=== PATIENT | male | born 1990 | race African-American/Black ===

== ENCOUNTER 2016-06-02 22:46 | Emergency (ER) | payer MEDICAID, OTHER ==
[~2016-06-02] VITALS: Ht 172.7 cm; Wt 59.0 kg
[2016-06-03 00:04] LABS: Basophils # (auto) 0.1 uL; Basophils % (auto) 1.3 % (0.0-2.0); Eosinophils # (auto) 0 uL; Eosinophils % (auto) 0.2 % (0.0-7.0); Hematocrit 47.8 % (41.0-53.0); Hemoglobin 15.3 g/dL (13.5-17.5); Lymphocytes # (auto) 1.9 uL; Lymphocytes % (auto) 22.7 % (10.0-50.0); Mean Corpuscular Hemoglobin 28.2 pg (28.0-32.0); Mean Corpuscular Hgb Conc. 31.9 g/dL (32.0-36.0); Mean Corpuscular Volume 88.3 fL (80.0-100.0); Mean Platelet Volume 9.5 fL (7.4-10.4); Monocytes # (auto) 0.6 uL; Monocytes % (auto) 6.9 % (0.0-12.0); Neutrophils # (auto) 5.8 uL; Neutrophils % (auto) 68.9 % (37.0-80.0); Platelet Count (auto) 255 10^3/uL (140-450); Red Cell Distribution Width 14.7 % (11.6-16.0); White Blood Cell 8.4 10^3/uL (4.4-10.8)
[2016-06-03 00:21] LABS: Albumin 4.1 g/dL (3.4-5.0); Calcium 9.4 mg/dL (8.5-10.1); Potassium 3.1 mmol/L (3.5-5.1)
[2016-06-03 00:34] LABS: Bilirubin, Total 0.3 mg/dL (0.2-1.0); Total Protein 9.2 g/dL (6.4-8.2)
[2016-06-03 02:31] VITALS: BP 119/56
[2016-06-03] MEDS ORDERED: POTASSIUM CHL 20 Meq TABLET PO ONE (03:30)
== END 2016-06-03 03:35 ==
LOC: ER 22:57
DX: R06.02 Shortness of breath (principal); F12.10 Cannabis abuse, uncomplicated
CPT/HCPCS: 36415; 71020; 80053; 85025; 85049

== ENCOUNTER 2024-05-30 12:02 | Inpatient (IN) | payer MEDICARE, MEDICAID ==
[~2024-05-30] VITALS: Ht 170.2 cm; Wt 59.1 kg
--- NOTE | 2024-05-30 13:41 | ED.PDOC ---
History of Present Illness HPI Comments 33 year old male with a Hx of dialysis x 1 year and HIV presents for fevers, body aches Symptoms started 1 day ago at work Had dialysis Thursday but did not get full treatment Denies sick contacts Denies persistent chest pain, shortness of breath, leg swelling Denies history of asthma nor any breathing conditions Denies history of pneumonia Denies recent international travel Chief Complaint: Fever Time Seen by MD: 12:26 Reviewed Notes: Nurses Notes, Medications, Allergies Information Source: Patient Past Medical History PAST MEDICAL HISTORY: HIV Social History Smoker: Non-Smoker Alcohol: Denies ETOH Use Drugs: Marijuana All Other Systems: Reviewed and Negative (Per HPI) Physical Exam General Appearance: No Apparent Distress, Normal HEENT: Normal ENT Inspection, Pharynx Normal, TMs Normal Neck: Full Range of Motion, Non-Tender, Normal, Normal Inspection Respiratory: Chest Non-Tender, Lungs Clear, No Accessory Muscle Use, No Respiratory Distress, Normal Breath Sounds Cardiovascular: No Murmur, No Gallop, Regular Rate/Rhythm, Other (Dialysis port to right chest.) Breast Exam: Deferred Gastrointestinal: No Organomegaly, Non Tender, No Pulsatile Mass, Normal Bowel Sounds, Soft Genitalia: Deferred Pelvic: Deferred Rectal: Deferred Extremities: No calf tenderness, Normal capillary refill, Normal inspection, Normal range of motion, Non-tender, No pedal edema Musculoskeletal : Apperance: Normal Neurologic: Alert, No Motor Deficits, Normal Affect, Normal Mood, No Sensory Deficits Cerebellar Function: Normal Reflexes: Normal Skin: Dry, Normal Color, Warm Lymphatic: No Adenopathy Was a procedure done? Was a procedure done?: No Fever Differential Dx Differential Diagnosis: Influenza, Pneumonia, UTI, Viral Syndrome, Pharyngitis X-Ray, Labs, Meds, VS Vital Signs Date Time Temp Pulse Resp B/P (MAP) Pulse Ox O2 Delivery O2 Flow Rate FiO2 05/30/24 13:57 100.6 05/30/24 13:36 100.6 115 16 133/84 (100) 100 100.6 05/30/24 13:36 115 16 100 Room Air 05/30/24 12:15 100.6 115 16 133/84 (100) 100 Lab Test 05/30/24 17:36 05/30/24 15:50 05/30/24 14:01 Range/Units Lactic Acid Level 1.4 0.4-2.0 mmol/L Influenza Type A Antigen Negative Negative Influenza Type B Antigen Negative Negative SARS-CoV-2 Antigen (Rapid) Negative NEGATIVE White Blood Count 21.1 H 4.4-10.8 10^3/uL Red Blood Count 3.58 L 4.5-5.90 10^6/uL Hemoglobin 11.5 L 13.5-17.5 g/dL Hematocrit 35.4 L 41.0-53.0 % Mean Corpuscular Volume 98.9 80.0-100.0 fL Mean Corpuscular Hemoglobin 32.0 28.0-32.0 pg Mean Corpuscular Hemoglobin Concent 32.4 32.0-36.0 g/dL Red Cell Distribution Width 15.5 H 11.8-14.3 % Platelet Count 142 140-450 10^3/uL Mean Platelet Volume 9.8 6.9-10.8 fL Neutrophils (%) (Auto) 89.1 H 37.0-80.0 % Lymphocytes (%) (Auto) 3.5 L 10.0-50.0 % Monocytes (%) (Auto) 7.1 0.0-12.0 % Eosinophils (%) (Auto) 0.0 0.0-7.0 % Basophils (%) (Auto) 0.3 0.0-2.0 % Neutrophils # (Auto) 18.8 H 1.6-8.6 10 ^3/uL Lymphocytes # (Auto) 0.7 0.4-5.4 10 ^3/uL Monocytes # (Auto) 1.5 H 0-1.3 10 ^3/uL Eosinophils # (Auto) 0 0-0.8 10 ^3/uL Basophils # (Auto) 0.1 0-0.2 10 ^3/uL Nucleated Red Blood Cells 0.0 % Sodium Level 141 136-145 mmol/L Potassium Level 5.4 H 3.5-5.1 mmol/L Chloride Level 101 98-107 mmol/L Carbon Dioxide Level 25 20-31 mmol/L Anion Gap 15 5-15 Blood Urea Nitrogen 67 H 9-23 mg/dL Creatinine 15.56 *H 0.700-1.30 mg/dL Glomerular Filtration Rate Calc 4 >90 mL/min BUN/Creatinine Ratio 4.3 L 10.0-20.0 Serum Glucose 86 74-106 mg/dL Calcium Level 10.0 8.7-10.4 mg/dL Total Bilirubin 0.4 0.2-1.0 mg/dL Aspartate Amino Transferase (AST) 37 13-40 U/L Alanine Aminotransferase (ALT) 34 7-40 U/L Alkaline Phosphatase 121 H 46-116 U/L Total Protein 7.6 5.7-8.2 g/dL Albumin 4.7 3.2-4.8 g/dL Microbiology Date/Time Source Procedure Growth Status 05/30/24 17:36 Blood Blood Culture - Preliminary NO GROWTH AFTER 24 HOURS OF INCUBATION. Resulted 05/30/24 17:36 Blood Blood Culture - Preliminary NO GROWTH AFTER 24 HOURS OF INCUBATION. Resulted X-Ray, Labs, Meds, VS Comment 33 year old male with a Hx of dialysis x 1 year and HIV presents for fevers, body aches On presentation, the patient is febrile and has stable vital signs. The patient is overall well appearing, non-toxic on exam. Low suspicion for Acute Asthma or COPD Exacerbation, CHF exacerbation, PE, PTX, atypical ACS, Pneumonia Viral Testing done and results show neg findings Labs show: WBC: 21.1, Neutrophils: 18.8, K+: 5.4, Creatinine: 15.56 and eGRF: 4. Pending lactic and blood cultures CXR shows No acute intrathoracic process. Low suspicion for strep pharyngitis given physical exam findings and patient's presenting symptoms, therefore, rapid step was deferred No signs of meningism on exam. Upon arrival patient febrile. Given Tylenol and on re-evaluation temperature is 99.7 Respiratory exam, respirations even and unlabored, clear to auscultation bilaterally No supraclavicular contractions or use of accessory muscles Oxygen saturation on room air 99%, no respiratory distress noted Patient's afebrile, well-appearing, behavior normal for age, good eye contact, mucous membranes pink and moist The patient presents with s/s consistent with fevers of unknown origin. He is immunocompromised and based on patients medical hx, workup reveals that the patient needs further evaluation and/or treatment for the above medical conditions. Patient verbalized understanding of the above and is awaiting further evaluation by the admitting service. Time of 1ST Reevaluation: 16:38 Reevaluation 1ST: Improved Patient Education/Counseling: Diagnosis, Treatment Family Education/Counseling: Diagnosis, Treatment Departure 1 Departure Time of Disposition: 16:57 Impression: Primary Impression: ESRD (end stage renal disease) on dialysis Additional Impressions: Fever of unknown origin History of HIV infection Leukocytosis Qualified Codes: D72.829 - Elevated white blood cell count, unspecified Hyperkalemia Disposition: ADMITTED INPATIENT Condition: Fair Critical Care Note Critical Care Time?: No Stability Stability form required: No Heart Score Heart Score: Heart Score Response (Comments) Value History N/A 0 EKG N/A 0 Age N/A 0 Risk Factors N/A 0 Troponin N/A 0 Total 0 ELLY DELUNA NP May 30, 2024 13:41
[2024-05-30] MEDS: ACETAMINOPHEN 325 MG TAB PO ONE (13:57)
--- NOTE | 2024-05-30 14:07 | DVH ---
CHEST RADIOGRAPH Indication: cough Technique: Frontal and lateral views of the chest were obtained Comparison: CXR dated 02/17/24 was not made available on the PAC system for viewing. FINDINGS: Lines and Tubes: Right chest tunneled dialysis catheter. Lungs: Clear Pleura: No effusion or pneumothorax. Cardiomediastinal contours: Unremarkable Bones: Unremarkable IMPRESSION: No acute intrathoracic process.
[2024-05-30 14:32] LABS: Basophils # (auto) 0.1 10 ^3/uL (0-0.2); Basophils % (auto) 0.3 % (0.0-2.0); Eosinophils # (auto) 0 10 ^3/uL (0-0.8); Hematocrit 35.4 % (41.0-53.0); Hemoglobin 11.5 g/dL (13.5-17.5); Lymphocytes # (auto) 0.7 10 ^3/uL (0.4-5.4); Lymphocytes % (auto) 3.5 % (10.0-50.0); Mean Corpuscular Hgb Conc. 32.4 g/dL (32.0-36.0); Mean Corpuscular Volume 98.9 fL (80.0-100.0); Monocytes # (auto) 1.5 10 ^3/uL (0-1.3); Monocytes % (auto) 7.1 % (0.0-12.0); Neutrophils # (auto) 18.8 10 ^3/uL (1.6-8.6); Neutrophils % (auto) 89.1 % (37.0-80.0); Platelet Count (auto) 142 10^3/uL (140-450); Red Blood Cells 3.58 10^6/uL (4.5-5.90); Red Cell Distribution Width 15.5 % (11.8-14.3); White Blood Cell 21.1 10^3/uL (4.4-10.8)
[2024-05-30 14:42] LABS: Alanine Aminotransferase 34 U/L (7-40); Albumin 4.7 g/dL (3.2-4.8); Anion Gap 15 (5-15); Aspartate Aminotransferase 37 U/L (13-40); BUN/Creatinine Ratio 4.3 (10.0-20.0); Bilirubin, Total 0.4 mg/dL (0.2-1.0); Carbon Dioxide 25 mmol/L (20-31); Chloride 101 mmol/L (98-107); Glucose 86 mg/dL (74-106); Sodium 141 mmol/L (136-145); Total Protein 7.6 g/dL (5.7-8.2)
[2024-05-30 14:54] LABS: Alkaline Phosphatase 121 U/L (46-116); Blood Urea Nitrogen 67 mg/dL (9-23); Potassium 5.4 mmol/L (3.5-5.1)
[2024-05-30] MEDS: cefTRIAXone 1GM/50ML D5W 50 ML IV ONE (15:03)
[2024-05-30 16:27] LABS: Rapid Influenza A Negative (Negative); Rapid Influenza B Negative (Negative)
[2024-05-30 16:28] LABS: COVID19 ANTIGEN SOFIA FIA NEGATIVE (NEGATIVE)
[2024-05-30] MEDS ORDERED: ONDANSETRON HCL 4 MG/2 ML VIAL IV PRN (19:30)
[2024-05-30] MEDS ORDERED: TEMAZEPAM 15 MG CAP PO PRN (19:30)
[2024-05-30] MEDS ORDERED: ALBUTEROL SULF 2.5 MG/0.5ML(0.5%) NEB SOLN NEB PRN (19:30)
[2024-05-30 20:52] VITALS: BP 133/84; PULSE 115; RESP 16; TEMP 100.6; O2SAT 100
[2024-05-30] MEDS: AMIODARONE HCL 200 MG TAB PO SCH (22:00)
[2024-05-30 23:56] VITALS: BP 118/7; PULSE 82; RESP 18; TEMP 98.9; O2SAT 98
[2024-05-31] VITALS (7 sets, daily range): BP systolic 113–125; BP diastolic 69–77; PULSE 73–85; RESP 16–18; TEMP 98.2–98.6; O2SAT 94–100
--- NOTE | 2024-05-31 00:39 | DVHHP2 ---
History of Present Illness Reason for Visit: Generalized weakness History of Present Illness 33-year-old male presents for evaluation of generalized weakness he reports a two day history of generalized weakness with associated fever and body aches. Denies cough, chest pain or shortness for breath. Denies any other acute compl aints at the moment. Past Medical History End-stage renal disease, hypertension and HIV Past Surgical History Dialysis access Family History Noncontributory Smoke: No ALCOHOL: none Drugs: Marijuana Review of Systems Review of Systems Review of systems are currently negative otherwise addressed in HPI. Allergies: Coded Allergies: NO KNOWN ALLERGIES (Unverified , 06/02/16) Medications Current Medications Medications Dose Ordered Sig/Alejandro Route Start Time Stop Time Status Last Admin Dose Admin Amiodarone HCl 200 mg Q12HR PO 05/30/24 22:00 Losartan Potassium 50 mg DAILY PO 05/31/24 10:00 Sevelamer HCl 800 mg TIDWM PO 05/31/24 08:00 Albuterol 2.5 mg Q6HPRN PRN NEB 05/30/24 19:30 Ceftriaxone Sodium 50 ml @ 100 mls/hr DAILY@09 IV 05/31/24 09:00 Temazepam 15 mg QHSP PRN PO 05/30/24 19:30 Ondansetron HCl 4 mg Q4HP PRN IV 05/30/24 19:30 Acetaminophen 650 mg Q6HP PRN PO 05/30/24 19:30 Patient Own Medication 1 tab DAILY PO 05/31/24 10:00 Exam Vital Signs Vital Signs Date Time Temp Pulse Resp B/P (MAP) Pulse Ox O2 Delivery O2 Flow Rate FiO2 05/30/24 23:45 98.7 85 18 119/71 (87) 98 98.7 05/30/24 23:41 Room Air* 0 21 Exam Gen: 33-year-old male in mild distress. Skin: Warm, dry, normal color and texture, no rash. HEENT: Normocephalic atraumatic, mucous membranes moist and pink. Neck: Cervical and supraclavicular nodes normal without enlargement, trachea is midline, thyroid gland is normal without masses. Pulmonary: Clear to auscultation and percussion bilaterally. Cardiac: Regular rate and rhythm. No murmur Abdomen: Soft, nontender, nondistended, bowel sounds present all 4 quadrants, no guarding, no rigidity, no organomegaly. Extremities: No cyanosis, clubbing, no edema Neuro: Cranial nerves II through XII grossly intact, normal affect and speech, no focal motor deficits. Labs/Xrays ORDERING PHYSICIAN: ELLY DELUNA NP PROCEDURE(s): CXR2 - CHEST TWO VIEWS ROUTINE REASON: cough ORDER NUMBER(s): [id number], ACCESSION NUMBER(s): [id number] CHEST RADIOGRAPH Indication: cough Technique: Frontal and lateral views of the chest were obtained Comparison: CXR dated 02/17/24 was not made available on the PAC system for viewing. FINDINGS: Lines and Tubes: Right chest tunneled dialysis catheter. Lungs: Clear Pleura: No effusion or pneumothorax. Cardiomediastinal contours: Unremarkable Bones: Unremarkable IMPRESSION: No acute intrathoracic process. Labs Test 05/30/24 17:36 05/30/24 15:50 05/30/24 14:01 Range/Units Lactic Acid Level 1.4 0.4-2.0 mmol/L Influenza Type A Antigen Negative Negative Influenza Type B Antigen Negative Negative SARS-CoV-2 Antigen (Rapid) Negative NEGATIVE White Blood Count 21.1 H 4.4-10.8 10^3/uL Red Blood Count 3.58 L 4.5-5.90 10^6/uL Hemoglobin 11.5 L 13.5-17.5 g/dL Hematocrit 35.4 L 41.0-53.0 % Mean Corpuscular Volume 98.9 80.0-100.0 fL Mean Corpuscular Hemoglobin 32.0 28.0-32.0 pg Mean Corpuscular Hemoglobin Concent 32.4 32.0-36.0 g/dL Red Cell Distribution Width 15.5 H 11.8-14.3 % Platelet Count 142 140-450 10^3/uL Mean Platelet Volume 9.8 6.9-10.8 fL Neutrophils (%) (Auto) 89.1 H 37.0-80.0 % Lymphocytes (%) (Auto) 3.5 L 10.0-50.0 % Monocytes (%) (Auto) 7.1 0.0-12.0 % Eosinophils (%) (Auto) 0.0 0.0-7.0 % Basophils (%) (Auto) 0.3 0.0-2.0 % Neutrophils # (Auto) 18.8 H 1.6-8.6 10 ^3/uL Lymphocytes # (Auto) 0.7 0.4-5.4 10 ^3/uL Monocytes # (Auto) 1.5 H 0-1.3 10 ^3/uL Eosinophils # (Auto) 0 0-0.8 10 ^3/uL Basophils # (Auto) 0.1 0-0.2 10 ^3/uL Nucleated Red Blood Cells 0.0 % Sodium Level 141 136-145 mmol/L Potassium Level 5.4 H 3.5-5.1 mmol/L Chloride Level 101 98-107 mmol/L Carbon Dioxide Level 25 20-31 mmol/L Anion Gap 15 5-15 Blood Urea Nitrogen 67 H 9-23 mg/dL Creatinine 15.56 *H 0.700-1.30 mg/dL Glomerular Filtration Rate Calc 4 >90 mL/min BUN/Creatinine Ratio 4.3 L 10.0-20.0 Serum Glucose 86 74-106 mg/dL Calcium Level 10.0 8.7-10.4 mg/dL Total Bilirubin 0.4 0.2-1.0 mg/dL Aspartate Amino Transferase (AST) 37 13-40 U/L Alanine Aminotransferase (ALT) 34 7-40 U/L Alkaline Phosphatase 121 H 46-116 U/L Total Protein 7.6 5.7-8.2 g/dL Albumin 4.7 3.2-4.8 g/dL Assessment/Plan Assessment/Plan Assessment Early sepsis End-stage renal disease, dialysis dependent HIV positive Plan Admit the patient to [facility] to the hospitalist Blood pending Rocephin Resume home medications Nephrology consultation Continue treatment per orders. Plan discussed with: Patient My Orders Orders - HERRERA MCQUEEN AGACNP Procedure Category Date Status Time Amiodarone Tablet PHA 05/30/24 In Process (Cordarone Tablet) 22:00 Losartan Tablet PHA 05/31/24 In Process (Cozaar Tablet) 10:00 Sevelamer (Renagel) PHA 05/31/24 In Process 08:00 Albuterol Medneb PHA 05/30/24 In Process (Ventolin Medneb) 19:30 *[facility] CONS 05/30/24 Transmitted -[place] 19:19 Ceftriaxone 1gm/50ml PHA 05/31/24 In Process D5w (Rocephin) 09:00 Basic Metabolic Panel LAB 05/31/24 Logged 04:00 Admit ADMIT 05/30/24 Transmitted 19:19 Renal DIET 05/31/24 Transmitted Standard(2gna,3gk,Lopho) Breakfast Temazepam (Restoril) PHA 05/30/24 In Process 19:30 Ondansetron Hcl PHA 05/30/24 In Process (Zofran) 19:30 Complete Blood Count LAB 05/31/24 Logged 04:00 Condition: Stable BENNETT 05/30/24 In Process 19:19 Acetaminophen Tablet PHA 05/30/24 In Process (Tylenol Tablet) 19:30 Bedrest With Bathroom BENNETT 05/30/24 In Process Privileg 19:19 (Nf) Biktarvy PHA 05/31/24 In Process 50-200-25 10:00 Date of Service: May 30, 2024 Billing Provider: HERRERA MCQUEEN Common Visit Codes: [id number] INP/OBS CARE (HIGH) HERRERA MCQUEEN May 31, 2024 00:39
[2024-05-31] MEDS: SODIUM ZIRCONIUM CYCL 10 GM PAK PO ONE ×2 (02:15→15:00)
[2024-05-31 05:12] LABS: Basophils # (auto) 0.1 10 ^3/uL (0-0.2); Basophils % (auto) 0.4 % (0.0-2.0); Eosinophils # (auto) 0 10 ^3/uL (0-0.8); Lymphocytes % (auto) 5.1 % (10.0-50.0); Mean Corpuscular Hemoglobin 32.8 pg (28.0-32.0); Mean Corpuscular Hgb Conc. 33.4 g/dL (32.0-36.0); Mean Corpuscular Volume 98.3 fL (80.0-100.0); Monocytes # (auto) 1.1 10 ^3/uL (0-1.3); Monocytes % (auto) 5.4 % (0.0-12.0); Neutrophils # (auto) 17.9 10 ^3/uL (1.6-8.6); Neutrophils % (auto) 89.1 % (37.0-80.0); Platelet Count (auto) 131 10^3/uL (140-450); Red Blood Cells 3.35 10^6/uL (4.5-5.90); Red Cell Distribution Width 15.5 % (11.8-14.3); White Blood Cell 20.1 10^3/uL (4.4-10.8)
[2024-05-31 05:18] LABS: Anion Gap 15 (5-15); Carbon Dioxide 25 mmol/L (20-31); Chloride 99 mmol/L (98-107); Sodium 139 mmol/L (136-145)
[2024-05-31 05:19] LABS: Calcium 9.9 mg/dL (8.7-10.4)
[2024-05-31 05:24] LABS: BUN/Creatinine Ratio 4.7 (10.0-20.0); Glucose 85 mg/dL (74-106)
[2024-05-31 05:30] LABS: Blood Urea Nitrogen 82 mg/dL (9-23); Potassium 5.6 mmol/L (3.5-5.1)
[2024-05-31] MEDS: SEVELAMER 800 MG TAB PO SCH (08:00)
[2024-05-31] MEDS: BIKTARVY PO SCH (10:00)
[2024-05-31] MEDS: cefTRIAXone 1GM/50ML D5W 50 ML IV SCH (10:13)
[2024-05-31] MEDS: LOSARTAN POTASSIUM 50 MG TAB PO SCH (10:13)
--- NOTE | 2024-05-31 13:17 | DVHPN2 ---
Reviewed: Care Plan, H&P, Labs, Medications, Previous Orders, Radiology Changes from previous H/P or p: No Changes Objective Vitals Vital Signs Date Time Temp Pulse Resp B/P (MAP) Pulse Ox O2 Delivery O2 Flow Rate FiO2 05/31/24 10:13 120/76 05/31/24 09:19 100 Room Air 0.0 05/31/24 09:19 21 05/31/24 08:00 98.2 75 18 98.2 Intake/Output Intake and Output 05/31/24 07:00 Intake Total 150 ml Balance 150 ml Intake Oral 100 ml IV Total 50 ml # Voids 1 Medications Current Medications Medications Dose Ordered Sig/Alejandro Route Start Time Stop Time Status Last Admin Dose Admin Amiodarone HCl 200 mg Q12HR PO 05/30/24 22:00 05/31/24 10:12 200 MG Losartan Potassium 50 mg DAILY PO 05/31/24 10:00 05/31/24 10:13 50 MG Sevelamer HCl 800 mg TIDWM PO 05/31/24 08:00 Albuterol 2.5 mg Q6HPRN PRN NEB 05/30/24 19:30 Ceftriaxone Sodium 50 ml @ 100 mls/hr DAILY@09 IV 05/31/24 09:00 05/31/24 10:13 100 MLS/HR Temazepam 15 mg QHSP PRN PO 05/30/24 19:30 Ondansetron HCl 4 mg Q4HP PRN IV 05/30/24 19:30 Acetaminophen 650 mg Q6HP PRN PO 05/30/24 19:30 Patient Own Medication 1 tab DAILY PO 05/31/24 10:00 Laboratory Results Laboratory Tests 05/31/24 04:44 Chemistry Test 05/30/24 14:01 05/31/24 04:44 Albumin 4.7 g/dL (3.2-4.8) Calcium Level 10.0 mg/dL (8.7-10.4) 9.9 mg/dL (8.7-10.4) Total Protein 7.6 g/dL (5.7-8.2) LFT Test 05/30/24 14:01 Alanine Aminotransferase (ALT) 34 U/L (7-40) Alkaline Phosphatase 121 U/L (46-116) H Aspartate Amino Transferase (AST) 37 U/L (13-40) Total Bilirubin 0.4 mg/dL (0.2-1.0) Labs and/or images reviewed: Labs reviewed by me, Image(s) reviewed by me Assessment/Plan Assessment/Plan Sepsis with the elevated point controlled : Blood cultures, Rocephin ESRD on hemodialysis consult with Dr. Lulú Suarez Acute generalized weakness Acute hyperkalemia potassium 5.6, treatment per potassium protocol Hypertension HIV positive status Flu test negative COVID ervin negative Time spent 65 minutes Patient is full code Advanced care planning time 20 minutes Plan discussed with: Patient Date of Service: May 31, 2024 Billing Provider: NIC BRUNNER MD Common Visit Codes: [id number] CARE 30-74 MIN NIC BRUNNER MD May 31, 2024 13:17
--- NOTE | 2024-05-31 20:52 | DVHINCON2 ---
Date of service: May 31, [address] Chandler / Dr. Brown Reason for Consultation ESRD and management of dialysis. History of Present Illness Daniel Márquez is a 33-year-old M with a Past Medical History pertinent for End- stage Renal Disease, Hypertension and HIV who presented to the hospital with c/o generalized weakness x two days. Patient also endorses associated fever and body aches. No cough, chest pain or shortness for breath. No other acute complaints. While in ED, Flu and Covid tests were negative. Chest x-ray reported no acute intrathoracic process. Labs were remarkable for K 5.6. Creatinine 17.45. BUN 82. WBC 20.1. Hgb 11.0. Platelet count 131. Patient is under my care outpatient for dialysis and Nephrology standpoint. I was asked to consult. Allergies: Coded Allergies: NO KNOWN ALLERGIES (Unverified , 06/02/16) Current Medications Current Medications Medications (Trade) Dose Ordered Sig/Alejandro Route PRN Reason Start Time Stop Time Status Last Admin Amiodarone HCl (Cordarone Tablet) 200 mg Q12HR PO 05/30/24 22:00 05/31/24 10:12 Losartan Potassium (Cozaar Tablet) 50 mg DAILY PO 05/31/24 10:00 05/31/24 10:13 Sevelamer HCl (Renagel) 800 mg TIDWM PO 05/31/24 08:00 05/31/24 19:00 Ceftriaxone Sodium 50 ml @ 100 mls/hr DAILY@09 IV 05/31/24 09:00 05/31/24 10:13 Patient Own Medication 1 tab DAILY PO 05/31/24 10:00 Review of Systems Review of Systems Review of systems are currently negative otherwise addressed in HPI. H&P Exam Vital Signs/I&O Vital Sign Date Time Temp Pulse Resp B/P (MAP) Pulse Ox O2 Delivery O2 Flow Rate FiO2 05/31/24 17:00 98.5 75 16 125/73 (90) 97 98.5 05/31/24 09:19 Room Air 0.0 05/31/24 09:19 21 Intake and Output 05/30/24 05/31/24 19:00 07:00 Intake Total 50 ml 100 ml Balance 50 ml 100 ml Intake Oral 100 ml IV Total 50 ml # Voids 1 Physical Exam Gen: In no acute distress Skin: Warm, dry, normal color and texture, no rash. HEENT: Normocephalic atraumatic, mucous membranes moist and pink. Neck: Cervical and supraclavicular nodes normal without enlargement, trachea is midline, thyroid gland is normal without masses. Pulmonary: Clear to auscultation and percussion bilaterally. Cardiac: Regular rate and rhythm. No murmur Abdomen: Soft, nontender, nondistended, bowel sounds present all 4 quadrants, no guarding, no rigidity, no organomegaly. Extremities: No cyanosis, clubbing, no edema Neuro: Cranial nerves II through XII grossly intact, normal affect and speech, no focal motor deficits. Labs/Diagnostic Data Labs/Diagnostic Data Laboratory Tests Test 05/31/24 04:44 05/30/24 17:36 05/30/24 15:50 05/30/24 14:01 Range/Units White Blood Count 20.1 H 21.1 H 4.4-10.8 10^3/uL Red Blood Count 3.35 L 3.58 L 4.5-5.90 10^6/uL Hemoglobin 11.0 L 11.5 L 13.5-17.5 g/dL Hematocrit 33.0 L 35.4 L 41.0-53.0 % Mean Corpuscular Volume 98.3 98.9 80.0-100.0 fL Mean Corpuscular Hemoglobin 32.8 H 32.0 28.0-32.0 pg Mean Corpuscular Hemoglobin Concent 33.4 32.4 32.0-36.0 g/dL Red Cell Distribution Width 15.5 H 15.5 H 11.8-14.3 % Platelet Count 131 L 142 140-450 10^3/uL Mean Platelet Volume 9.3 9.8 6.9-10.8 fL Neutrophils (%) (Auto) 89.1 H 89.1 H 37.0-80.0 % Lymphocytes (%) (Auto) 5.1 L 3.5 L 10.0-50.0 % Monocytes (%) (Auto) 5.4 7.1 0.0-12.0 % Eosinophils (%) (Auto) 0.0 0.0 0.0-7.0 % Basophils (%) (Auto) 0.4 0.3 0.0-2.0 % Neutrophils # (Auto) 17.9 H 18.8 H 1.6-8.6 10 ^3/uL Lymphocytes # (Auto) 1.0 0.7 0.4-5.4 10 ^3/uL Monocytes # (Auto) 1.1 1.5 H 0-1.3 10 ^3/uL Eosinophils # (Auto) 0 0 0-0.8 10 ^3/uL Basophils # (Auto) 0.1 0.1 0-0.2 10 ^3/uL Nucleated Red Blood Cells 0.0 0.0 % Sodium Level 139 141 136-145 mmol/L Potassium Level 5.6 *H 5.4 H 3.5-5.1 mmol/L Chloride Level 99 101 98-107 mmol/L Carbon Dioxide Level 25 25 20-31 mmol/L Anion Gap 15 15 5-15 Blood Urea Nitrogen 82 #*H 67 H 9-23 mg/dL Creatinine 17.45 *H 15.56 *H 0.700-1.30 mg/dL Glomerular Filtration Rate Calc 3 4 >90 mL/min BUN/Creatinine Ratio 4.7 L 4.3 L 10.0-20.0 Serum Glucose 85 86 74-106 mg/dL Calcium Level 9.9 10.0 8.7-10.4 mg/dL Lactic Acid Level 1.4 0.4-2.0 mmol/L Influenza Type A Antigen Negative Negative Influenza Type B Antigen Negative Negative SARS-CoV-2 Antigen (Rapid) Negative NEGATIVE Total Bilirubin 0.4 0.2-1.0 mg/dL Aspartate Amino Transferase (AST) 37 13-40 U/L Alanine Aminotransferase (ALT) 34 7-40 U/L Alkaline Phosphatase 121 H 46-116 U/L Total Protein 7.6 5.7-8.2 g/dL Albumin 4.7 3.2-4.8 g/dL Assessment Sepsis ESRD on hemodialysis Acute generalized weakness Acute hyperkalemia Hypertension HIV positive status Plan/Recommendation Agreement with your ongoing assessment and plan of care. 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 Will have HD tomorrow. Lokelma 10 gm PO x once. IV antibiotics. MedNeb breathing treatments. Reconcile and resume home medications. Pain management prn. Additional plan as per the hospital course. Plan discussed with: Patient, Other (RN) CLAUDINE TRUJILLO DO May 31, 2024 20:52
[2024-06-01] VITALS (10 sets, daily range): BP systolic 102–128; BP diastolic 60–89; PULSE 68–86; RESP 16–20; TEMP 97.9–101; O2SAT 95–99
[2024-06-01] MEDS: SODIUM CHL 0.9% 1000 ML BAG XX ONE (08:45)
--- NOTE | 2024-06-01 11:47 | DVHPN2 ---
Reviewed: Care Plan, H&P, Labs, Medications, Previous Orders, Radiology Changes from previous H/P or p: No Changes Objective Vitals Vital Signs Date Time Temp Pulse Resp B/P (MAP) Pulse Ox O2 Delivery O2 Flow Rate FiO2 06/01/24 09:00 98.0 69 16 114/73 (87) 99 98.0 06/01/24 08:30 Room Air* 0 21 Intake/Output Intake and Output 06/01/24 07:00 Intake Total 1020 ml Balance 1020 ml Intake Oral 1020 ml # Voids 2 # Bowel Movements 1 Medications Current Medications Medications Dose Ordered Sig/Alejandro Route Start Time Stop Time Status Last Admin Dose Admin Amiodarone HCl 200 mg Q12HR PO 05/30/24 22:00 05/31/24 10:12 200 MG Losartan Potassium 50 mg DAILY PO 05/31/24 10:00 05/31/24 10:13 50 MG Sevelamer HCl 800 mg TIDWM PO 05/31/24 08:00 05/31/24 19:00 800 MG Albuterol 2.5 mg Q6HPRN PRN NEB 05/30/24 19:30 Ceftriaxone Sodium 50 ml @ 100 mls/hr DAILY@09 IV 05/31/24 09:00 05/31/24 10:13 100 MLS/HR Temazepam 15 mg QHSP PRN PO 05/30/24 19:30 Ondansetron HCl 4 mg Q4HP PRN IV 05/30/24 19:30 Acetaminophen 650 mg Q6HP PRN PO 05/30/24 19:30 Patient Own Medication 1 tab DAILY PO 05/31/24 10:00 Laboratory Results Laboratory Tests 05/31/24 04:44 Microbiology Microbiology Date/Time Source Procedure Growth Status 05/30/24 17:36 Blood Blood Culture - Preliminary NO GROWTH AFTER 24 HOURS OF INCUBATION. Resulted Labs and/or images reviewed: Labs reviewed by me, Image(s) reviewed by me Assessment/Plan Assessment/Plan Sepsis with elevated point controlled 63626: Blood cultures negative, continue Rocephin ESRD on hemodialysis consult with Dr. Lulú Suarez Acute generalized weakness Acute hyperkalemia potassium 5.6, treatment per potassium protocol Hypertension HIV positive status Flu test negative COVID ervin negative Time spent 65 minutes Patient is full code Advanced care planning time 20 minutes Plan discussed with: Patient Date of Service: Jun 01, 2024 Billing Provider: NIC BRUNNER MD Common Visit Codes: [id number] INP/OBS CARE(HIGH) NIC BRUNNER MD Jun 01, 2024 11:47
[2024-06-01] MEDS ORDERED: [UNRECOGNIZED DRUG - CODE] PO (13:44)
[2024-06-01] MEDS ORDERED: DOLU50TA OR (13:44)
[2024-06-01] MEDS ORDERED: AMIO200T33 PO (13:44)
[2024-06-01] MEDS ORDERED: LOPE2CAP PO (13:44)
[2024-06-01] MEDS ORDERED: [UNRECOGNIZED DRUG - CODE] OR (13:44)
[2024-06-01] MEDS ORDERED: PANT40T PO (13:44)
[2024-06-01] MEDS ORDERED: LOSA-534 PO (13:44)
[2024-06-01 18:07] LABS: Urine Bacteria None Seen /hpf (None Seen)
[2024-06-01 18:25] LABS: Urine Blood TRACE /uL (Negative); Urine Clarity Clear (Clear); Urine Color Light-Yellow (Yellow); Urine Protein, UAD 2+ (Negative); Urine Specific Gravity 1.011 (1.001-1.035); Urine Squamous Epithelial Cell FEW /hpf (<5); Urine Urobilinogen Normal (Negative); Urine WBC 41 /HPF (0-3)
--- NOTE | 2024-06-01 19:01 | DVHPN2 ---
Progress Note - Dictate Date Seen: Jun 01, 2024 Has the PT tested + for MRSA If YES, has PT been informed?: No Medical Necessity Reason Pt with a Central, PICC or Fol: No Subjective Patient was seen and evaluated in follow up. No acute events overnight. Patient denies any new complaints. Endorses continued weakness. Febrile this morning Tmax 101F. No chest pain or shortness of breath. Received dialysis this morning, -2.5L removed. Tolerated well. vital signs Vital Sign Date Time Temp Pulse Resp B/P (MAP) Pulse Ox O2 Delivery O2 Flow Rate FiO2 06/01/24 16:46 100.1 86 18 110/69 (83) 95 100.1 06/01/24 09:30 Room Air 06/01/24 09:30 0 21 Total Intake and Output 05/31/24 05/31/24 06/01/24 14:59 22:59 06:59 Intake Total 780 ml 240 ml Balance 780 ml 240 ml medications Current Medications Medications Dose Ordered Sig/Alejandro Route Start Time Stop Time Status Last Admin Dose Admin Amiodarone HCl 200 mg Q12HR PO 05/30/24 22:00 06/01/24 12:23 200 MG Losartan Potassium 50 mg DAILY PO 05/31/24 10:00 05/31/24 10:13 50 MG Sevelamer HCl 800 mg TIDWM PO 05/31/24 08:00 05/31/24 19:00 800 MG Albuterol 2.5 mg Q6HPRN PRN NEB 05/30/24 19:30 Ceftriaxone Sodium 50 ml @ 100 mls/hr DAILY@09 IV 05/31/24 09:00 06/01/24 12:21 100 MLS/HR Temazepam 15 mg QHSP PRN PO 05/30/24 19:30 Ondansetron HCl 4 mg Q4HP PRN IV 05/30/24 19:30 Acetaminophen 650 mg Q6HP PRN PO 05/30/24 19:30 Patient Own Medication 1 tab DAILY PO 05/31/24 10:00 06/01/24 12:24 1 TAB objective Vitals and nursing notes reviewed. Gen: In no acute distress HEENT: Normocephalic atraumatic, mucous membranes moist and pink. Neck: Cervical and supraclavicular nodes normal without enlargement, trachea is midline, thyroid gland is normal without masses. Pulmonary: Clear to auscultation and percussion bilaterally. Cardiac: Regular rate and rhythm. No murmur Abdomen: Soft, nontender, nondistended, bowel sounds present all 4 quadrants, no guarding, no rigidity, no organomegaly. Extremities: No cyanosis, clubbing, no edema Neuro: Cranial nerves II through XII grossly intact, normal affect and speech, no focal motor deficits. Skin: Warm, dry, normal color and texture, no rash. laboratory and microbiology Laboratory Tests 05/31/24 04:44 Test 05/31/24 04:44 Range/Units Serum Glucose 85 74-106 mg/dL Problem List Sepsis ESRD on hemodialysis Acute generalized weakness Acute hyperkalemia Hypertension HIV positive status Assessment/Plan Agree with current supportive medical care. Consult Infectious Disease. Additional labs ordered. UA w/culture reflex. Received dialysis today. UF 2.5L. Amiodarone 200 mg PO q12h. IV antibiotics with Ceftriaxone. MedNeb breathing treatments. Temazepam prn for insomnia nightly. Strict Intake/Output. Acetaminophen 650 mg PO q6h prn. Additional plan as per the hospital course. Plan discussed with: Patient, Other (RN) CLAUDINE TRUJILLO DO Jun 01, 2024 19:00
[2024-06-02] VITALS (12 sets, daily range): BP systolic 91–114; BP diastolic 46–76; PULSE 64–91; RESP 16–20; TEMP 98.3–102.2; O2SAT 96–99
--- NOTE | 2024-06-02 10:15 | DVHPN2 ---
Reviewed: Care Plan, H&P, Labs, Medications, Previous Orders, Radiology Changes from previous H/P or p: No Changes Objective Vitals Vital Signs Date Time Temp Pulse Resp B/P (MAP) Pulse Ox O2 Delivery O2 Flow Rate FiO2 06/02/24 08:49 99.5 72 18 114/76 (89) 98 99.5 06/02/24 08:00 Room Air* 0 21 Intake/Output Intake and Output 06/02/24 07:00 Intake Total 650 ml Balance 650 ml Intake Oral 600 ml IV Total 50 ml # Voids 1 # Bowel Movements 1 Medications Current Medications Medications Dose Ordered Sig/Alejandro Route Start Time Stop Time Status Last Admin Dose Admin Amiodarone HCl 200 mg Q12HR PO 05/30/24 22:00 06/01/24 22:26 200 MG Losartan Potassium 50 mg DAILY PO 05/31/24 10:00 05/31/24 10:13 50 MG Sevelamer HCl 800 mg TIDWM PO 05/31/24 08:00 05/31/24 19:00 800 MG Albuterol 2.5 mg Q6HPRN PRN NEB 05/30/24 19:30 Ceftriaxone Sodium 50 ml @ 100 mls/hr DAILY@09 IV 05/31/24 09:00 06/01/24 12:21 100 MLS/HR Temazepam 15 mg QHSP PRN PO 05/30/24 19:30 Ondansetron HCl 4 mg Q4HP PRN IV 05/30/24 19:30 Acetaminophen 650 mg Q6HP PRN PO 05/30/24 19:30 Patient Own Medication 1 tab DAILY PO 05/31/24 10:00 06/01/24 12:24 1 TAB Laboratory Results Laboratory Tests 05/31/24 04:44 Urinalysis Test 06/01/24 17:55 Urine Color Light-yellow (Yellow) Urine Clarity Clear (Clear) Urine pH 8.0 (5.0-9.0) Urine Specific [place] 1.011 (1.001-1.035) Urine Protein 2+ (Negative) H Urine Ketones Negative (Negative) Urine Blood Trace /uL (Negative) H Urine Nitrite Negative (Negative) Urine Bilirubin Negative (Negative) Urine Urobilinogen Normal mg/dL (Negative) Urine Leukocyte Esterase 1+ /uL (Negative) Urine RBC 2 /hpf (0 - 3) Urine Microscopic WBC 41 /HPF (0-3) H Urine Squamous Epithelial Cells Few /hpf (<5) Urine Bacteria None seen /hpf (None Seen) Urine Glucose Trace mg/dL (Normal) Microbiology Microbiology Date/Time Source Procedure Growth Status 05/30/24 17:36 Blood Blood Culture - Preliminary NO GROWTH AFTER 48 HOURS OF INCUBATION. Resulted Labs and/or images reviewed: Labs reviewed by me, Image(s) reviewed by me Assessment/Plan Assessment/Plan Sepsis with elevated point controlled 35694: Blood cultures negative, continue Rocephin ESRD on hemodialysis consult with Dr. Lulú Suarez Acute generalized weakness Acute hyperkalemia potassium 5.6, treatment per potassium protocol Hypertension HIV positive status Flu test negative COVID test negative Time spent 55 minutes Patient is full code Advanced care planning time 20 minutes Will DC tomorrow Plan discussed with: Patient My Orders Orders - NIC BRUNNER MD Procedure Category Date Status Time Urine Bacterial ALIN 06/01/24 In Process Culture 17:58 Date of Service: Jun 02, 2024 Billing Provider: NIC BRUNNER MD Common Visit Codes: [id number] INP/OBS CARE(HIGH) NIC BRUNNER MD Jun 02, 2024 10:15
--- NOTE | 2024-06-02 20:09 | DVHPN2 ---
Progress Note - Dictate Date Seen: Jun 02, 2024 Has the PT tested + for MRSA If YES, has PT been informed?: No Medical Necessity Reason Pt with a Central, PICC or Fol: No Subjective Patient was seen and evaluated in follow up. No acute events overnight. Patient denies any new complaints. Stable on RA. Noted with low grade fever this morning. Patient is scheduled to receive dialysis again today. vital signs Vital Sign Date Time Temp Pulse Resp B/P (MAP) Pulse Ox O2 Delivery O2 Flow Rate FiO2 06/02/24 17:00 98.3 75 17 111/46 (67) 96 98.3 06/02/24 14:00 0.0 06/02/24 14:00 Room Air* 21 Total Intake and Output 06/01/24 06/01/24 06/02/24 15:00 23:00 07:00 Intake Total 50 ml 600 ml 0 ml Balance 50 ml 600 ml 0 ml medications Current Medications Medications Dose Ordered Sig/Alejandro Route Start Time Stop Time Status Last Admin Dose Admin Amiodarone HCl 200 mg Q12HR PO 05/30/24 22:00 06/02/24 10:28 200 MG Losartan Potassium 50 mg DAILY PO 05/31/24 10:00 06/02/24 10:29 50 MG Sevelamer HCl 800 mg TIDWM PO 05/31/24 08:00 05/31/24 19:00 800 MG Albuterol 2.5 mg Q6HPRN PRN NEB 05/30/24 19:30 Ceftriaxone Sodium 50 ml @ 100 mls/hr DAILY@09 IV 05/31/24 09:00 06/02/24 10:26 100 MLS/HR Temazepam 15 mg QHSP PRN PO 05/30/24 19:30 Ondansetron HCl 4 mg Q4HP PRN IV 05/30/24 19:30 Acetaminophen 650 mg Q6HP PRN PO 05/30/24 19:30 Patient Own Medication 1 tab DAILY PO 05/31/24 10:00 06/01/24 12:24 1 TAB objective Vitals and nursing notes reviewed. Gen: In no acute distress HEENT: Normocephalic atraumatic, mucous membranes moist and pink. Neck: Cervical and supraclavicular nodes normal without enlargement, trachea is midline, thyroid gland is normal without masses. Pulmonary: Clear to auscultation and percussion bilaterally. Cardiac: Regular rate and rhythm. No murmur Abdomen: Soft, nontender, nondistended, bowel sounds present all 4 quadrants, no guarding, no rigidity, no organomegaly. Extremities: No cyanosis, clubbing, no edema Neuro: Cranial nerves II through XII grossly intact, normal affect and speech, no focal motor deficits. Skin: Warm, dry, normal color and texture, no rash. laboratory and microbiology Laboratory Tests 05/31/24 04:44 Test 05/31/24 04:44 Range/Units Serum Glucose 85 74-106 mg/dL Problem List Sepsis ESRD on hemodialysis Acute generalized weakness Acute hyperkalemia Hypertension HIV positive status Assessment/Plan Agree with current supportive medical care. HD- 06/02- 2L as tolerated. Epogen 10,000 u x once with dialysis treatment. Amiodarone 200 mg PO q12h. IV antibiotics with Ceftriaxone. MedNeb breathing treatments. Temazepam prn for insomnia nightly. Strict Intake/Output. Acetaminophen 650 mg PO q6h prn. Additional plan as per the hospital course. Plan discussed with: Patient, Other (RN) CLAUDINE TRUJILLO DO Jun 02, 2024 20:09
[2024-06-02] MEDS ORDERED: EPOETIN ALFA-EPBX 10,000 UNIT/1ML VIAL SC ONE (21:00)
[2024-06-02] MEDS: ACETAMINOPHEN 325 MG TAB PO PRN (22:34)
[2024-06-03 00:56] VITALS: BP 91/49; PULSE 67; RESP 18; TEMP 99; O2SAT 96
[2024-06-03 04:06] LABS: Basos 0 % (Not Estab.); Eos 3 % (Not Estab.); Eos (Absolute) 0.3 x10E3/uL (0.0-0.4); Hematocrit 37.1 % (37.5-51.0); Immature Granulocytes (Abs) 0 x10E3/uL (0.0-0.1); Lymphs 6 % (Not Estab.); Lymphs (Absolute) 0.5 x10E3/uL (0.7-3.1); MCH 31.8 pg (26.6-33.0); MCHC 32.3 g/dL (31.5-35.7); MCV 98 fL (79-97); Monocytes 7 % (Not Estab.); Monocytes (Absolute) 0.6 x10E3/uL (0.1-0.9); Neutrophils 84 % (Not Estab.); Neutrophils (Absolute) 6.4 x10E3/uL (1.4-7.0); Platelets 134 x10E3/uL (150-450); RBC 3.77 x10E6/uL (4.14-5.80); RDW 13.7 % (11.6-15.4); WBC 7.7 x10E3/uL (3.4-10.8)
[2024-06-03 06:40] VITALS: BP 96/56; PULSE 76; RESP 18; TEMP 97.9; O2SAT 100
[2024-06-03] MEDS: SODIUM CHL 0.9% 1000 ML BAG XX ONE (07:44)
[2024-06-03 08:15] VITALS: RESP 18; O2SAT 98
[2024-06-03 08:27] VITALS: O2SAT 97
--- NOTE | 2024-06-03 10:19 | DVHPN2 ---
Reviewed: Care Plan, H&P, Labs, Medications, Previous Orders, Radiology Changes from previous H/P or p: No Changes Objective Vitals Vital Signs Date Time Temp Pulse Resp B/P (MAP) Pulse Ox O2 Delivery O2 Flow Rate FiO2 06/03/24 09:38 111/62 06/03/24 08:27 97 Room Air* 0 21 06/03/24 06:40 97.9 76 18 97.9 Intake/Output Intake and Output 06/03/24 07:00 Intake Total 1150 ml Balance 1150 ml Intake Oral 1100 ml IV Total 50 ml # Voids 1 Medications Current Medications Medications Dose Ordered Sig/Alejandro Route Start Time Stop Time Status Last Admin Dose Admin Amiodarone HCl 200 mg Q12HR PO 05/30/24 22:00 06/03/24 09:38 200 MG Losartan Potassium 50 mg DAILY PO 05/31/24 10:00 06/03/24 09:38 50 MG Sevelamer HCl 800 mg TIDWM PO 05/31/24 08:00 05/31/24 19:00 800 MG Albuterol 2.5 mg Q6HPRN PRN NEB 05/30/24 19:30 Ceftriaxone Sodium 50 ml @ 100 mls/hr DAILY@09 IV 05/31/24 09:00 06/03/24 09:39 100 MLS/HR Temazepam 15 mg QHSP PRN PO 05/30/24 19:30 Ondansetron HCl 4 mg Q4HP PRN IV 05/30/24 19:30 Acetaminophen 650 mg Q6HP PRN PO 05/30/24 19:30 06/02/24 22:34 650 MG Patient Own Medication 1 tab DAILY PO 05/31/24 10:00 06/01/24 12:24 1 TAB Laboratory Results Laboratory Tests 05/31/24 04:44 06/01/24 17:47 Urinalysis Test 06/01/24 17:55 Urine Color Light-yellow (Yellow) Urine Clarity Clear (Clear) Urine pH 8.0 (5.0-9.0) Urine Specific [place] 1.011 (1.001-1.035) Urine Protein 2+ (Negative) H Urine Ketones Negative (Negative) Urine Blood Trace /uL (Negative) H Urine Nitrite Negative (Negative) Urine Bilirubin Negative (Negative) Urine Urobilinogen Normal mg/dL (Negative) Urine Leukocyte Esterase 1+ /uL (Negative) Urine RBC 2 /hpf (0 - 3) Urine Microscopic WBC 41 /HPF (0-3) H Urine Squamous Epithelial Cells Few /hpf (<5) Urine Bacteria None seen /hpf (None Seen) Urine Glucose Trace mg/dL (Normal) Microbiology Microbiology Date/Time Source Procedure Growth Status 06/01/24 17:55 Voided Urine Urine Culture - Preliminary Resulted 05/30/24 17:36 Blood Blood Culture - Preliminary NO GROWTH AFTER 72 HOURS OF INCUBATION. Resulted Labs and/or images reviewed: Labs reviewed by me, Image(s) reviewed by me Assessment/Plan Assessment/Plan Sepsis with elevated wbc 72319: Blood cultures negative, urine cultures negative WBC down to 7 K, ID consult for Dr. Nava pending continue Rocephin ESRD on hemodialysis consult with Dr. Lulú Suarez Acute generalized weakness Acute hyperkalemia potassium 5.6, treatment per potassium protocol Hypertension HIV positive status Flu test negative COVID test negative Time spent 55 minutes Patient is full code Advanced care planning time 20 minutes Will DC tomorrow Plan discussed with: Patient My Orders Orders - NIC BRUNNER MD Procedure Category Date Status Time Complete Blood Count LAB 06/03/24 Logged 04:00 Date of Service: Jun 03, 2024 Billing Provider: NIC BRUNNER MD Common Visit Codes: [id number] INP/OBS CARE(HIGH) NIC BRUNNER MD Jun 03, 2024 10:19
[2024-06-03 10:28] LABS: Basophils # (auto) 0 10 ^3/uL (0-0.2); Basophils % (auto) 0.4 % (0.0-2.0); Eosinophils # (auto) 0.3 10 ^3/uL (0-0.8); Eosinophils % (auto) 4.9 % (0.0-7.0); Hematocrit 42.9 % (41.0-53.0); Hemoglobin 14.1 g/dL (13.5-17.5); Lymphocytes # (auto) 0.6 10 ^3/uL (0.4-5.4); Lymphocytes % (auto) 10.3 % (10.0-50.0); Mean Corpuscular Hgb Conc. 32.9 g/dL (32.0-36.0); Mean Corpuscular Volume 100.1 fL (80.0-100.0); Monocytes # (auto) 0.7 10 ^3/uL (0-1.3); Monocytes % (auto) 11.5 % (0.0-12.0); Neutrophils # (auto) 4.5 10 ^3/uL (1.6-8.6); Neutrophils % (auto) 72.9 % (37.0-80.0); Nucleated Red Blood Cells % 0.1 %; Platelet Count (auto) 150 10^3/uL (140-450); Red Blood Cells 4.28 10^6/uL (4.5-5.90); Red Cell Distribution Width 15.2 % (11.8-14.3); White Blood Cell 6.2 10^3/uL (4.4-10.8)
[2024-06-03] MEDS ORDERED: LEVO500T91 PO (10:32)
--- NOTE | 2024-06-03 10:37 | DVHDS2 ---
Discharge Summary Date of Admission May 30, 2024 at 19:19 Date of Discharge: Jun 03, 2024 Admitting Diagnosis Weakness Wounds: None Labs/Diagnostic Data: Laboratory Results Test 06/03/24 09:59 06/01/24 17:55 06/01/24 17:47 06/01/24 10:35 White Blood Count 6.2 10^3/uL (4.4-10.8) Red Blood Count 4.28 10^6/uL (4.5-5.90) Hemoglobin 14.1 g/dL (13.5-17.5) Hematocrit 42.9 % (41.0-53.0) Mean Corpuscular Volume 100.1 fL (80.0-100.0) Mean Corpuscular Hemoglobin 33.0 pg (28.0-32.0) Mean Corpuscular Hemoglobin Concent 32.9 g/dL (32.0-36.0) Red Cell Distribution Width 15.2 % (11.8-14.3) Platelet Count 150 10^3/uL (140-450) Mean Platelet Volume 9.8 fL (6.9-10.8) Neutrophils (%) (Auto) 72.9 % (37.0-80.0) Lymphocytes (%) (Auto) 10.3 % (10.0-50.0) Monocytes (%) (Auto) 11.5 % (0.0-12.0) Eosinophils (%) (Auto) 4.9 % (0.0-7.0) Basophils (%) (Auto) 0.4 % (0.0-2.0) Neutrophils # (Auto) 4.5 10 ^3/uL (1.6-8.6) Lymphocytes # (Auto) 0.6 10 ^3/uL (0.4-5.4) Monocytes # (Auto) 0.7 10 ^3/uL (0-1.3) Eosinophils # (Auto) 0.3 10 ^3/uL (0-0.8) Basophils # (Auto) 0 10 ^3/uL (0-0.2) Nucleated Red Blood Cells 0.1 % Urine Color Light-yellow (Yellow) Urine Clarity Clear (Clear) Urine pH 8.0 (5.0-9.0) Urine Specific [place] 1.011 (1.001-1.035) Urine Protein 2+ (Negative) Urine Ketones Negative (Negative) Urine Blood Trace /uL (Negative) Urine Nitrite Negative (Negative) Urine Bilirubin Negative (Negative) Urine Urobilinogen Normal mg/dL (Negative) Urine Leukocyte Esterase 1+ /uL (Negative) Urine RBC 2 /hpf (0 - 3) Urine Microscopic WBC 41 /HPF (0-3) Urine Squamous Epithelial Cells Few /hpf (<5) Urine Bacteria None seen /hpf (None Seen) Urine Glucose Trace mg/dL (Normal) Absolute Neutrophils (auto) 6.4 x10E3/uL (1.4-7.0) Absolute Lymphocytes (auto) 0.5 x10E3/uL (0.7-3.1) Absolute Monocytes (auto) 0.6 x10E3/uL (0.1-0.9) Absolute Eosinophils (auto) 0.3 x10E3/uL (0.0-0.4) Absolute Basophils (auto) 0.0 x10E3/uL (0.0-0.2) Immature Granulocytes % 0 % (Not Estab.) Immature Granulocytes # 0 x10E3/uL (0.0-0.1) Immature Blood Cells (.) Hematology Comments (.) Hepatitis B Surface Antigen Negative (Negative) Test 05/31/24 04:44 05/30/24 17:36 05/30/24 15:50 05/30/24 14:01 Sodium Level 139 mmol/L (136-145) Potassium Level 5.6 mmol/L (3.5-5.1) Chloride Level 99 mmol/L (98-107) Carbon Dioxide Level 25 mmol/L (20-31) Anion Gap 15 (5-15) Blood Urea Nitrogen 82 mg/dL (9-23) Creatinine 17.45 mg/dL (0.700-1.30) Glomerular Filtration Rate Calc 3 mL/min (>90) BUN/Creatinine Ratio 4.7 (10.0-20.0) Serum Glucose 85 mg/dL (74-106) Calcium Level 9.9 mg/dL (8.7-10.4) Lactic Acid Level 1.4 mmol/L (0.4-2.0) Influenza Type A Antigen Negative (Negative) Influenza Type B Antigen Negative (Negative) SARS-CoV-2 Antigen (Rapid) Negative (NEGATIVE) Total Bilirubin 0.4 mg/dL (0.2-1.0) Aspartate Amino Transferase (AST) 37 U/L (13-40) Alanine Aminotransferase (ALT) 34 U/L (7-40) Alkaline Phosphatase 121 U/L (46-116) Total Protein 7.6 g/dL (5.7-8.2) Albumin 4.7 g/dL (3.2-4.8) Other Laboratory Tests 06/03/24 09:59 05/31/24 04:44 Brief Hx & Hospital Course: 33-year-old male with a history of ESRD on hemodialysis HIV positive hypotension came in for generalized weakness. . Franny test negative flu test negative WBC elevated 15052 diagnosed with sepsis treated with Rocephin blood cultures negative urine cultures negative WBC down to 7000 at the time of discharge Dr. Lulú Suarez did not hemodialysis and advised the patient can be discharged. Prescription for Levaquin transmitted to the pharmacy. He will continue all his home medications follow up with the marketing strategy analyst for dialysis Consults/Reason for consult Nephrology Dr.S Suarez Operations or Procedures Hemodialysis Condition at Discharge: Fair Final Diagnosis/Problems List Sepsis treated with Rocephin now resolved ESRD on hemodialysis consult with Dr. Lulú Suarez Acute generalized weakness Acute hyperkalemia potassium 5.6, treatment per potassium protocol Hypertension HIV positive status Flu test negative COVID test negative Discharge Disposition: Home Discharge Instruct/Medications Diet: Renal Activity: Light activity Follow Up/Referral: Follow up with the marketing strategy analyst for dialysis Continue all your previous home medications Medications: Levaquin 35 (Time Taken for discharge summary 35 minutes) Discharge Statement: "Patient was advised to return to the ER or call 911 if any headaches, dizziness, shortness of breath, chest pain, abdominal pain, bleeding, fevers, or worsening of medical condition. Patient was counseled about treatment plan, medications, possible side effects, patientverbalized understanding. All questions were answered to the best of my ability. This discharge took greater then 30 minutes in planning, reviewing documentation, counseling the patient, and discussing with other team members." ASSESSMENT ASSESSMENT Hospital Course Improved Assessment Sepsis treated with Rocephin now resolved ESRD on hemodialysis consult with Dr. Lulú Suarez Acute generalized weakness Acute hyperkalemia potassium 5.6, treatment per potassium protocol Hypertension HIV positive status Flu test negative COVID test negative Date of Service: Jun 03, 2024 Billing Provider: NIC BRUNNER MD Common Visit Codes: [id number] DISCH DAY >30min NIC BRUNNER MD Jun 03, 2024 10:37
[2024-06-03 11:26] VITALS: BP 111/62
[2024-06-03 16:06] LABS: % CD 4 Pos Lymph 14.9 % (30.8-58.5); % CD 8 Pos Lymph 69.5 % (12.0-35.5); Absolute CD 4 Helper 75 /uL (359-1519); CD4/CD8 Ratio 0.21 (0.92-3.72)
--- NOTE | 2024-06-03 19:52 | DVHPN2 ---
Progress Note - Dictate Date Seen: Jun 03, 2024 Has the PT tested + for MRSA If YES, has PT been informed?: No Medical Necessity Reason Pt with a Central, PICC or Fol: No Subjective Patient was seen and evaluated in follow up. No acute events overnight. Patient denies any new complaints. Reports being out of his HIV medication. vital signs Vital Sign Date Time Temp Pulse Resp B/P (MAP) Pulse Ox O2 Delivery O2 Flow Rate FiO2 06/03/24 09:38 111/62 06/03/24 08:27 97 Room Air* 0 21 06/03/24 08:15 18 06/03/24 06:40 97.9 76 97.9 Total Intake and Output 06/02/24 06/02/24 06/03/24 15:00 23:00 07:00 Intake Total 50 ml 300 ml 800 ml Balance 50 ml 300 ml 800 ml objective Vitals and nursing notes reviewed. Gen: In no acute distress HEENT: Normocephalic atraumatic, mucous membranes moist and pink. Neck: Cervical and supraclavicular nodes normal without enlargement, trachea is midline, thyroid gland is normal without masses. Pulmonary: Clear to auscultation and percussion bilaterally. Cardiac: Regular rate and rhythm. No murmur Abdomen: Soft, nontender, nondistended, bowel sounds present all 4 quadrants, no guarding, no rigidity, no organomegaly. Extremities: No cyanosis, clubbing, no edema Neuro: Cranial nerves II through XII grossly intact, normal affect and speech, no focal motor deficits. Skin: Warm, dry, normal color and texture, no rash. laboratory and microbiology Laboratory Tests 06/03/24 09:59 05/31/24 04:44 Test 05/31/24 04:44 Range/Units Serum Glucose 85 74-106 mg/dL Problem List Sepsis ESRD on hemodialysis Acute generalized weakness Acute hyperkalemia Hypertension HIV positive status Assessment/Plan Agree with current supportive medical care. DC planing in progress. Patient advised to follow up with ID outpatient for refills. S/p HD- 06/02- 2L as tolerated. Resume outpatient dialysis with [facility]. Plan discussed with: Patient, Other (RN) CLAUDINE TRUJILLO DO Jun 03, 2024 19:52
== END 2024-06-03 12:25 | disposition home or self-care (01) | DRG 974 ==
LOC: EDBD 12:02 → ER 12:02 → OVERFLOW 19:19 → WEST WING 05-31 13:51 → EAST 06-01 08:48
PROVIDERS: ADMIT Family Medicine; ATTEND Family Medicine
PROC: 5A1D70Z Performance of Urinary Filtration, Intermittent, Less than 6 Hours Per Day (ICD-10-PCS; principal; 2024-06-01)
PROC: 5A1D70Z Performance of Urinary Filtration, Intermittent, Less than 6 Hours Per Day (ICD-10-PCS; 2024-06-02)
DX: A41.9 Sepsis, unspecified organism (principal); N18.6 End stage renal disease; B20 Human immunodeficiency virus [HIV] disease; I12.0 Hypertensive chronic kidney disease with stage 5 chronic kidney disease or end stage renal disease; N39.0 Urinary tract infection, site not specified; Z99.2 Dependence on renal dialysis; Z20.822 Contact with and (suspected) exposure to COVID-19; E87.5 Hyperkalemia
CPT/HCPCS: 36415; 71046; 80048; 80053; 81001; 83605; 85025; 86360; 87040; 87086; 87340; 87426; 87536; 87804; 90935; 96365; G0378; J1642